=== PATIENT | female | born 1970 | race Caucasian/White ===

== ENCOUNTER → 2020-11-11 | Day surgery (SDC) | payer OTHER | END | disposition home or self-care (01) | LOC: FMAMMOTONE 11:04 | PROVIDERS: ATTEND Surgery | PROC: 0HBU3ZX Excision of Left Breast, Percutaneous Approach, Diagnostic (ICD-10-PCS; principal; 2020-11-11) | DX: D05.12 Intraductal carcinoma in situ of left breast (principal); N60.92 Unspecified benign mammary dysplasia of left breast; N64.89 Other specified disorders of breast; R92.0 Mammographic microcalcification found on diagnostic imaging of breast | CPT/HCPCS: 19081; 76098-TC-FY; 87899; 88305-TC; 88341-TC; 88342-TC; A4648 ==